=== PATIENT | female | born 1945 | race Two or more races ===

== ENCOUNTER 2019-08-22 09:17 | Emergency (ER) | payer OTHER ==
[2019-08-22 09:42] VITALS: BMI 24.4
--- NOTE | 2019-08-22 09:43 | PDOC ---
Rapid Medical Evaluation Chief Complaint: Cold Symptoms Time Seen by Provider: 08/22/19 09:41 Medical Evaluation: 08/22/19 09:41 Patient is 74F with history of HTN here today with cold symptoms: cough, rhinorrhea, left back pain, for two weeks. Flu negative in UC. Vital signs normal in triage. CXR and EKG ordered. Patient to main ED. Discharge Disposition - Diagnosis Viral illness - Discharge Dispostion Condition at time of disposition: Stable - Referrals - Patient Instructions - Post Discharge Activity
--- NOTE | 2019-08-22 10:33 | PDOC ---
Attending Attestation - Resident Resident Name: BookerPatrick - ED Attending Attestation I have performed the following: I have examined & evaluated the patient, The case was reviewed & discussed with the resident, I agree w/resident's findings & plan, Exceptions are as noted - HPI HPI: 08/22/19 10:32 74y F hx of htn, presents with complaint of non productive cough, malaise. Patient states that she had a URI approximately 1 to 2 weeks ago, had gone to urgent care had received a course of azithromycin and prednisone. Her cough is getting better however today it seemed to worsen a bit, she endorses subjective fevers denies any chest pain, abdominal pain, productive cough, hemoptysis, leg swelling, calf pain, dyspnea on exertion, denies any headache, neck pain. - Physicial Exam PE: 08/22/19 10:44 GENERAL: The patient is awake, alert, and fully oriented, Nontoxic - in no acute distress. HEAD: Normocephalic, atraumatic. EYES: extraocular movements intact, sclera anicteric, conjunctiva clear. ENT: Normal voice, Moist mucous membranes. NECK: Normal range of motion, supple LUNGS: Breath sounds equal, clear to auscultation bilaterally. No wheezes, no rhonchi, no rales. HEART: Regular rate and rhythm, normal S1 and S2 without murmur, rub or gallop. ABDOMEN: Soft, nontender, No guarding, no rebound. No CVA tenderness EXTREMITIES: Normal range of motion, no edema. NEUROLOGICAL: No facial assymetry, Normal speech, moving all 4 extremities spontaneously and symmetrically PSYCH: Normal mood, normal affect. SKIN: Warm, Dry, normal turgor, - Medical Decision Making 08/22/19 10:44 Likely URI, will check some basic labs as the patient has significant malaise however is is afebrile, and has a negative flu Will obtain a chest x-ray to rule out pneumonia We will give the patient's fluids for supportive management If work-up negative anticipate discharge with PMD follow-up 08/22/19 13:44 cxr neg labs unremarkable pt doing well, will dc with supportive care as outpatient pmd fu Heart Score/ECG Review - ECG Impressions Comment:: 08/22/19 11:55 EKG: regular rhythym rate of [address] changes suggestive of ischemia impression: sinus bradycardia
[2019-08-22] MEDS ORDERED: SODIUM CHLORIDE 1,000 ML IV STA (10:34)
[2019-08-22 10:50] LABS: BASO % 0.5 % (0-2.0); EOS % 3.2 % (0-4.5); HEMATOCRIT 39.1 % (32.4-45.2); HEMOGLOBIN 12.9 GM/dL (10.7-15.3); LYMPH % 18.2 % (8-40); MCHC 32.9 g/dl (32.0-36.0); MEAN PLT VOLUME 8.4 fl (7.5-11.1); MONO % 7.8 % (3.8-10.2); NEUT % 70.3 % (42.8-82.8); PLATELET COUNT 377 K/MM3 (134-434); RBC 4.77 M/mm3 (3.60-5.2); RDW 13.6 % (11.6-15.6)
[2019-08-22 11:21] LABS: ALK PHOS 82 U/L (45-117); ANION GAP 3 MMOL/L (8-16); BILIRUBIN,TOTAL 0.3 mg/dL (0.2-1); BLOOD UREA NITROGEN 12.1 mg/dL (7-18); CHLORIDE 102 mmol/L (98-107); CO2 34 mmol/L (21-32); CREATININE 0.9 mg/dL (0.55-1.3); GLUCOSE,RANDOM 78 mg/dL (74-106); POTASSIUM 4.8 mmol/L (3.5-5.1); SGOT/AST 21 U/L (15-37); SGPT/ALT 41 U/L (13-61); SODIUM 138 mmol/L (136-145); TOT PROT 7.1 g/dl (6.4-8.2)
[2019-08-22] MEDS ORDERED: ACETAMINOPHEN 1000 MG/100 ML VIAL (NON FORMULARY) IVPB ONE (11:34)
[2019-08-22] MEDS ORDERED: ACETAMINOPHEN INJECTION 100 ML IVPB ONE (11:46)
--- NOTE | 2019-08-22 12:27 | PDOC ---
History of Present Illness - General Chief Complaint: Cold Symptoms Stated Complaint: COLD SYMPTOMS Time Seen by Provider: 08/22/19 09:41 History Source: Patient Exam Limitations: No Limitations - History of Present Illness Initial Comments: 74 yo F with a hx of HTN presents to the emergency department with cough and fatigue. Per the patient, her cough is non productive and has been ongoing for the previous 2-3 days. Of note, she had a URI 1.5 weeks ago with urgent care evaluation where she was prescribed azithromycin and prednisone. Per the patient , she denies the following: chills, headache, FND, ears/nose/throat pain, chest pain, SOB, abdominal pain, dysuria, hematuria, diarrhea, leg pain/swelling and hematochezia. Endorses fever. Allergies: NKDA Past History - Past Medical History Allergies/Adverse Reactions: Allergies Allergy/AdvReac Type Severity Reaction Status Date / Time No Known Allergies Allergy Verified 08/22/19 09:42 Home Medications: Ambulatory Orders Atorvastatin Calcium 1 tab PO DAILY 08/22/19 Hydrochlorothiazide 1 tab PO DAILY 08/22/19 COPD: No HTN: Yes - Psycho Social/Smoking Cessation Hx Smoking History: Never smoked Hx Alcohol Use: No Drug/Substance Use Hx: No Review of Systems - Review of Systems Able to Perform ROS?: Yes Is the patient limited Kosovan proficient: No Constitutional: Yes: Fever, Malaise. No: Chills, Diaphoresis, Weakness HEENTM: No: Eye Pain, Ear Pain, Nose Pain, Throat Pain, Mouth Pain Respiratory: Yes: Cough. No: Shortness of Breath, Productive cough, Hemoptysis Cardiac (ROS): No: Chest Pain, Lightheadedness, Palpitations, Chest Tightness ABD/GI: No: Constipated, Diarrhea, Nausea, Rectal Bleeding, Vomiting, Tarry Stools : No: Burning, Dysuria, Hematuria Musculoskeletal: No: Back Pain, Joint Pain, Neck Pain Integumentary: No: Bruising, Erythema, Rash Neurological: No: Headache, Numbness, Tingling, Tremors Psychiatric: No: Change in Appetite Endocrine: No: Unexplained Weight Loss Hematologic/Lymphatic: No: Anemia *Physical Exam - Vital Signs Last Vital Signs Temp Pulse Resp BP Pulse Ox 98.2 F 63 16 165/66 100 08/22/19 09:40 08/22/19 09:40 08/22/19 09:40 08/22/19 09:40 08/22/19 09:40 - Physical Exam General Appearance: Yes: Nourished, Appropriately Dressed. No: Apparent Distress, Intoxicated, Obese HEENT: positive: EOMI, FABIAN, Normal ENT Inspection, Normal Voice, Symmetrical, TMs Normal, Pharynx Normal, Hearing Grossly Normal. negative: Pale Conjunctivae , Scleral Icterus (R), Scleral Icterus (L), Muffled/Hoarse voice, Pharyngeal Erythema, Tonsillar Exudate, Tonsillar Erythema, Nasal Congestion, Rhinorrhea, Sinus Tenderness, Excessive drooling Neck: positive: Trachea midline, Supple. negative: Tender, Lymphadenopathy (R) , Lymphadenopathy (L), Tender lateral, Tender midline Respiratory/Chest: positive: Lungs Clear, Normal Breath Sounds. negative: Chest Tender, Respiratory Distress, Accessory Muscle Use, Crackles, Rales, Rhonchi, Stridor, Wheezing Cardiovascular: positive: Regular Rhythm, Regular Rate, S1, S2. negative: Systolic Murmur Gastrointestinal/Abdominal: positive: Normal Bowel Sounds, Flat, Soft. negative : Tender, Distended, Guarding, Rebound Lymphatic: negative: Adenopathy Musculoskeletal: positive: Normal Inspection. negative: CVA Tenderness, Vertebral Tenderness Extremity: positive: Normal Capillary Refill, Normal Inspection, Normal Range of Motion. negative: Tender, Swelling, Calf Tenderness Integumentary: positive: Normal Color, Dry, Warm. negative: Erythema, Jaundice , Moist, Hives, Petechiae, Rash, Swelling Neurologic: positive: Alert, Normal Mood/Affect ED Treatment Course - LABORATORY CBC & Chemistry Diagram: 08/22/19 10:30 08/22/19 10:30 - ADDITIONAL ORDERS Additional order review: Laboratory Results 08/22/19 10:30 Sodium 138 Potassium 4.8 Chloride 102 Carbon Dioxide 34 H Anion Gap 3 L BUN 12.1 Creatinine 0.9 Est GFR (CKD-EPI)AfAm 73.00 Est GFR (CKD-EPI)NonAf 62.99 Random Glucose 78 Calcium 9.0 Total Bilirubin 0.3 AST 21 ALT 41 Alkaline Phosphatase 82 Troponin I < 0.02 Total Protein 7.1 Albumin 3.0 L 08/22/19 10:30 RBC 4.77 MCV 82.0 MCHC 32.9 RDW 13.6 MPV 8.4 Neutrophils % 70.3 Lymphocytes % 18.2 Monocytes % 7.8 Eosinophils % 3.2 Basophils % 0.5 - Medications Given in the ED: ED Medications Discontinued Medications Generic Name Dose Route Start Last Admin Trade Name Nancy PRN Reason Stop Dose Admin Acetaminophen 1,000 mg 08/22/19 11:34 08/22/19 11:51 Ofirmev Injection - IVPB 08/22/19 11:35 1,000 mg ONCE ONE Administration Sodium Chloride 1,000 mls @ 1,000 mls/hr 08/22/19 10:34 08/22/19 10:42 Normal Saline - IV 08/22/19 11:33 1,000 mls/hr ASDIR STA Administration Medical Decision Making - Medical Decision Making 74 yo F with a hx of HTN presents to the emergency department with cough and fatigue. Per the patient, her cough is non productive and has been ongoing for the previous 2-3 days. initial vitals: Initial Vital Signs Temp Pulse Resp BP Pulse Ox 98.2 F 63 16 165/66 100 08/22/19 09:40 08/22/19 09:40 08/22/19 09:40 08/22/19 09:40 08/22/19 09:40 Work up: ddx: patient presents with non productive cough s/p URI like symptoms approximately 2 weeks ago s/p azithromycin and prednisone. Patient states she has weakness, but denies SOB, GEE, and ears/nose/throat pain. Patient likely is having URI given that she had a recent negative influenza test. Laboratory Tests 08/22/19 08/22/19 10:30 10:30 WBC 8.0 RBC 4.77 Hgb 12.9 Hct 39.1 MCV 82.0 MCH 27.0 MCHC 32.9 RDW 13.6 Plt Count 377 MPV 8.4 Absolute Neuts (auto) 5.6 Neutrophils % 70.3 Lymphocytes % 18.2 Monocytes % 7.8 Eosinophils % 3.2 Basophils % 0.5 Nucleated RBC % 0 Sodium 138 Potassium 4.8 Chloride 102 Carbon Dioxide 34 H Anion Gap 3 L BUN 12.1 Creatinine 0.9 Est GFR (CKD-EPI)AfAm 73.00 Est GFR (CKD-EPI)NonAf 62.99 Random Glucose 78 Calcium 9.0 Total Bilirubin 0.3 AST 21 ALT 41 Alkaline Phosphatase 82 Troponin I < 0.02 Total Protein 7.1 Albumin 3.0 L Patient's labs within normal limits. CXR within normal limits; no acute process seen EKG: ventricular rate is 59 bpm, NM is 174 ms, QRS is 70 ms, QTc is 399 ms. Sinus bradycardia. TWI noted in V2. No ST elevation or depressions. Tylenol and fluids were given and the patient had marked improvement in symptoms. Will discharge patient with follow up with their primary medical doctor. Dispo: Discharge Discharge - Discharge Information Problems reviewed: Yes Clinical Impression/Diagnosis: Viral illness Condition: Stable Disposition: HOME - Admission No - Follow up/Referral Referrals: Mily Vega MD [Primary Care Provider] - - Patient Discharge Instructions Patient Printed Discharge Instructions: How to Avoid a Cold or Flu, DI for Acute Bronchitis, DI for Viral Upper Respiratory Infection -- Adult, DI for Common Cold Additional Instructions: You were seen in the emergency department for the evaluation of your cold symptoms. Please follow up with your primary medical doctor within 1 week after discharge for follow up care and management. Please stay hydrated as this is very important. Your labs and xrays are negative for an acute process. No pneumonia was seen on chest xray. Please return to the emergency department if you have worsening symptoms or new concerning symptoms. Thank you. - Post Discharge Activity
[2019-08-22 12:35] VITALS: BP 152/78; PULSE 53; TEMP 98.4
--- NOTE | 2019-08-22 13:26 | EKG ---
Test Reason : Blood Pressure : / mmHG Vent. Rate : 059 BPM Atrial Rate : 059 BPM P-R Int : 174 ms QRS Dur : 070 ms QT Int : 404 ms P-R-T Axes : 036 026 067 degrees QTc Int : 399 ms SINUS BRADYCARDIA OTHERWISE NORMAL ECG NO PREVIOUS ECGS AVAILABLE Confirmed by Gentry Awad ([id number]) on 08/22/2019 1:25:57 PM Referred By: Confirmed By:Gentry Awad
== END 2019-08-22 12:54 | disposition home or self-care (01) ==
LOC: JER 09:17
PROC: 3E0337Z Introduction of Electrolytic and Water Balance Substance into Peripheral Vein, Percutaneous Approach (ICD-10-PCS; principal; 2019-08-22)
PROC: 3E033NZ Introduction of Analgesics, Hypnotics, Sedatives into Peripheral Vein, Percutaneous Approach (ICD-10-PCS; 2019-08-22)
DX: J06.9 Acute upper respiratory infection, unspecified (principal); B97.89 Other viral agents as the cause of diseases classified elsewhere; I10 Essential (primary) hypertension
CPT/HCPCS: 36415; 71046-TC-FY; 80053; 84484; 85025; 93005; 93010; 96361; 96374; 99283-25; J0131; J7030

== ENCOUNTER 2022-10-24 12:36 | Inpatient (IN) | payer OTHER ==
[2022-10-24 14:24] LABS: BASO % 0.5 % (0-2.0); EOS % 3.9 % (0-4.5); HEMATOCRIT 38.1 % (32.4-45.2); HEMOGLOBIN 12.8 GM/dL (10.7-15.3); LYMPH % 19.4 % (8-40); MCH 27.2 pg (25.7-33.7); MCHC 33.5 g/dl (32.0-36.0); MEAN PLT VOLUME 8.6 fl (7.5-11.1); MONO % 6.8 % (3.8-10.2); NEUT % 69.4 % (42.8-82.8); PLATELET COUNT 223 10^3/uL (134-434); RBC 4.71 M/mm3 (3.60-5.2); RDW 14.7 % (11.6-15.6); WHITE BLOOD COUNT 5.6 K/mm3 (4.0-10.0)
[2022-10-24 14:31] LABS: INR 1.15 (0.83-1.09); PROTHROMBIN TIME (PATIENT) 13.3 SEC (9.7-13.0)
[2022-10-24 14:44] LABS: POTASSIUM 4.1 mmol/L (3.5-5.1)
[2022-10-24 14:46] LABS: CALCIUM 9.1 mg/dL (8.5-10.1)
[2022-10-24 14:48] LABS: ALBUMIN 3.6 g/dl (3.4-5.0); BLOOD UREA NITROGEN 10.3 mg/dL (7-18)
[2022-10-24 14:51] LABS: CREATININE 0.7 mg/dL (0.55-1.3); TOT PROT 7.8 g/dl (6.4-8.2)
[2022-10-24 14:52] LABS: BILIRUBIN,TOTAL 0.7 mg/dL (0.2-1)
[2022-10-24 14:55] LABS: EPI CELLS 2 /uL (0-25.1); HYALINE CASTS 0 /uL (0-3.1); URINE APPEARANCE CLEAR; URINE BACTERIA 129 /uL (0-1359); URINE BILIRUBIN NEGATIVE (NEGATIVE); URINE COLOR YELLOW; URINE GLUCOSE (UA) NEGATIVE (NEGATIVE); URINE KETONE NEGATIVE (NEGATIVE); URINE LEUK ESTERASE TRACE (NEGATIVE); URINE NITRITE NEGATIVE (NEGATIVE); URINE PROTEIN NEGATIVE (NEGATIVE); URINE RBC 5 /uL (0-23.9); URINE UROBILINOGEN 0.2 mg/dL (0.2-1.0); URINE WBC 17 /uL (0-25.8)
[2022-10-24 16:59] LABS: ERYTHROCYTE SEDIMENTATION RATE 26 mm/hr (0-30)
[2022-10-24] MEDS ORDERED: DEXAMETHASONE SOD PHOSPHATE 10 MG/1 ML VIAL IVPUSH ONE (19:02)
[2022-10-24] MEDS ORDERED: DEXAMETHASONE SOD PHOSPHATE 10 MG/1 ML VIAL ONE (19:28)
[2022-10-24] MEDS ORDERED: amLODIPine BESYLATE 5 MG TABLET (FP) PO ONE (22:54)
[2022-10-24 23:50] VITALS: BMI 21.3
[2022-10-25 05:20] VITALS: RESP 18
[2022-10-25] MEDS: HYDROCHLOROTHIAZIDE 25 MG TABLET (FP) PO SCH (09:05)
[2022-10-25 09:31] LABS: HEMATOCRIT 37.5 % (32.4-45.2); MCH 27.7 pg (25.7-33.7); MCHC 34.6 g/dl (32.0-36.0); MEAN CELL VOLUME 80.1 fl (80-96); MEAN PLT VOLUME 9.4 fl (7.5-11.1); PLATELET COUNT 252 10^3/uL (134-434); POTASSIUM 4.4 mmol/L (3.5-5.1); RBC 4.69 M/mm3 (3.60-5.2); RDW 14.3 % (11.6-15.6); WHITE BLOOD COUNT 5.8 K/mm3 (4.0-10.0)
[2022-10-25 09:33] LABS: CALCIUM 9.5 mg/dL (8.5-10.1)
[2022-10-25 09:34] LABS: BLOOD UREA NITROGEN 17.7 mg/dL (7-18); MAGNESIUM 2.2 mg/dL (1.8-2.4)
[2022-10-25 09:35] LABS: CREATININE 0.8 mg/dL (0.55-1.3)
[2022-10-25 09:37] LABS: PHOSPHOROUS 4.7 mg/dL (2.5-4.9)
[2022-10-25] MEDS: MESALAMINE 800 MG TABLET.DR PO SCH ×2 (13:38→21:50)
[2022-10-25] MEDS ORDERED: MESALAMINE 1000 MG/SUPP.RECT SUPP RC SCH (22:00)
[2022-10-26] MEDS: MESALAMINE 800 MG TABLET.DR PO SCH ×3 (06:34→22:04)
[2022-10-26 09:06] LABS: POTASSIUM 3.9 mmol/L (3.5-5.1)
[2022-10-26 09:07] LABS: BASO % 0.2 % (0-2.0); EOS % 0.5 % (0-4.5); HEMATOCRIT 36.6 % (32.4-45.2); HEMOGLOBIN 12.7 GM/dL (10.7-15.3); LYMPH % 17.9 % (8-40); MCH 27.6 pg (25.7-33.7); MCHC 34.5 g/dl (32.0-36.0); MEAN CELL VOLUME 79.8 fl (80-96); MEAN PLT VOLUME 9.1 fl (7.5-11.1); MONO % 8.7 % (3.8-10.2); NEUT % 72.7 % (42.8-82.8); PLATELET COUNT 256 10^3/uL (134-434); RBC 4.59 M/mm3 (3.60-5.2); RDW 14.5 % (11.6-15.6); WHITE BLOOD COUNT 6.6 K/mm3 (4.0-10.0)
[2022-10-26 09:14] LABS: BLOOD UREA NITROGEN 21.8 mg/dL (7-18)
[2022-10-26 09:17] LABS: CALCIUM 9.1 mg/dL (8.5-10.1); CREATININE 0.9 mg/dL (0.55-1.3); MAGNESIUM 2.3 mg/dL (1.8-2.4)
[2022-10-26] MEDS: HYDROCHLOROTHIAZIDE 25 MG TABLET (FP) PO SCH (09:54)
[2022-10-26] MEDS ORDERED: MESALAMINE 4 GM/60 ML ENEMA RC SCH (22:00)
[2022-10-27] MEDS: MESALAMINE 800 MG TABLET.DR PO SCH (05:28)
[2022-10-27 08:25] LABS: BASO % 0.7 % (0-2.0); HEMATOCRIT 38.6 % (32.4-45.2); HEMOGLOBIN 13.4 GM/dL (10.7-15.3); LYMPH % 30.9 % (8-40); MCH 27.7 pg (25.7-33.7); MCHC 34.8 g/dl (32.0-36.0); MEAN CELL VOLUME 79.5 fl (80-96); MEAN PLT VOLUME 9.3 fl (7.5-11.1); MONO % 8.5 % (3.8-10.2); NEUT % 55.9 % (42.8-82.8); PLATELET COUNT 230 10^3/uL (134-434); RBC 4.86 M/mm3 (3.60-5.2); RDW 14.5 % (11.6-15.6); WHITE BLOOD COUNT 4.7 K/mm3 (4.0-10.0)
[2022-10-27 08:44] LABS: POTASSIUM 3.8 mmol/L (3.5-5.1)
[2022-10-27 08:46] LABS: CALCIUM 8.9 mg/dL (8.5-10.1)
[2022-10-27 08:47] LABS: BLOOD UREA NITROGEN 23.2 mg/dL (7-18)
[2022-10-27 08:50] LABS: CREATININE 0.9 mg/dL (0.55-1.3)
[2022-10-27] MEDS: HYDROCHLOROTHIAZIDE 25 MG TABLET (FP) PO SCH (10:54)
[2022-10-27 10:56] VITALS: BP 140/69; PULSE 65; TEMP 98.1
== END 2022-10-27 13:15 | disposition home or self-care (01) | DRG 386 ==
LOC: JER 12:36 → JERBED 19:50 → J7W 21:11
PROVIDERS: ADMIT Internal Medicine
DX: K51.90 Ulcerative colitis, unspecified, without complications (principal); I24.8 Other forms of acute ischemic heart disease; K62.5 Hemorrhage of anus and rectum; I10 Essential (primary) hypertension; I16.0 Hypertensive urgency; D64.9 Anemia, unspecified; E78.5 Hyperlipidemia, unspecified
CPT/HCPCS: 0241U-QW; 36415; 71045-TC-FY; 74177-TC; 80048; 80053; 81003; 82272; 83605; 83690; 83735; 84100; 84484; 85025; 85027; 85610; 85651; 85730; 86140; 87045; 87046; 87086; 87186; 87324; 87449; 93005; 93010; 97116-GP; 97161-GP; 99285-25; J1100; Q9967